=== PATIENT | male | born 1975 | race Caucasian/White ===

== ENCOUNTER 2018-01-08 09:03 | Day surgery (SDC) | payer OTHER ==
[2018-01-08 09:38] VITALS: BMI 33.5
[2018-01-08] MEDS ORDERED: PROPOFOL 20 ML ONE ×2 (10:00)
[2018-01-08] MEDS ORDERED: LIDOCAINE HCL/PF 2% SDV 5ML VIAL ONE (10:01)
[2018-01-08 10:38] VITALS: TEMP 98.2
[2018-01-08 11:04] VITALS: BP 145/79; PULSE 76
--- NOTE | 2018-01-10 12:12 | PATH ---
Surgical Pathology Report Patient Name: ANNA MENSAH [facility]. Rec. #: [id number] /Age/Gender: 1975 (Age: 42) / M Account: [id number] Location: Taken: 01/08/2018 Received: 01/08/2018 Reported: 01/10/2018 Physicians: Denisa Alvarez M.D. Specimen(s) Received A: POLYPP ASCENDING COLON B: BX RECTUM Clinical History GI-rectal bleeding Postoperative diagnosis: Hemorrhoids, small polyp Final Diagnosis A. ASCENDING COLON, POLYP, BIOPSY: TUBULAR ADENOMA. B. RECTUM, BIOPSY: COLONIC MUCOSA WITHOUT SIGNIFICANT PATHOLOGIC FINDINGS. Electronically Signed Denisa Page M.D. Gross Description A. Received in formalin, labeled "polyp ascending colon" is a ashley, irregular portion of soft tissue measuring 0.5 cm. in greatest dimension. The specimen is submitted in toto in one cassette. B. Received in formalin, labeled "biopsy rectum" is a ashley, irregular portion of soft tissue measuring 0.5 cm. in greatest dimension. The specimen is submitted in toto in one cassette. KUSHAL/01/09/2018 jeremiah/01/09/2018
== END 2018-01-08 11:20 | disposition home or self-care (01) ==
LOC: FASU-ENDO 09:03
PROVIDERS: ATTEND Internal Medicine Gastroenterology
PROC: 0DBN8ZX Excision of Sigmoid Colon, Via Natural or Artificial Opening Endoscopic, Diagnostic (ICD-10-PCS; 2018-01-08)
PROC: 0DBM8ZX Excision of Descending Colon, Via Natural or Artificial Opening Endoscopic, Diagnostic (ICD-10-PCS; 2018-01-08)
PROC: 0DBK8ZX Excision of Ascending Colon, Via Natural or Artificial Opening Endoscopic, Diagnostic (ICD-10-PCS; principal; 2018-01-08 10:00)
DX: K92.1 Melena (principal); D12.2 Benign neoplasm of ascending colon; K64.1 Second degree hemorrhoids
CPT/HCPCS: 88305-TC

== ENCOUNTER 2018-10-17 13:02 | Emergency (ER) | payer OTHER ==
[2018-10-17 13:05] VITALS: BP 146/80; PULSE 82; TEMP 99.3; BMI 29.5
--- NOTE | 2018-10-17 13:54 | PDOC ---
Attending Attestation - Resident Resident Name: Lidia Vila - ED Attending Attestation I have performed the following: I have examined & evaluated the patient, The case was reviewed & discussed with the resident, I agree w/resident's findings & plan, Exceptions are as noted - HPI HPI: 10/17/18 18:59 Reviewed Residents HPI - Physicial Exam PE: 10/17/18 18:59 Reviewed Residents PE - Medical Decision Making 10/17/18 18:59 42 years old no history of migraines presents to the ED with worse than usual headache Approximated a.m. this morning His head CT was negative for any acute pathology. Negative for subarachnoid based Hawthorne rules Status post Reglan and Benadryl patient feels much better He will follow up with neurology this week. Findings, the need for follow-up and strict return instructions discussed with patient.
[2018-10-17] MEDS ORDERED: SODIUM CHLORIDE 0.9% 1000 ML INFUS.BAG IV ONE (13:55)
[2018-10-17] MEDS ORDERED: METOCLOPRAMIDE HCL INJECTION 10 MG/2 ML VIAL IVPB ONE (13:55)
[2018-10-17] MEDS ORDERED: METOCLOPRAMIDE HCL INJECTION 10 MG/2 ML VIAL ONE (14:13)
--- NOTE | 2018-10-17 14:54 | PDOC ---
History of Present Illness - General Chief Complaint: Migraine Headache Stated Complaint: MIGRAINE Time Seen by Provider: 10/17/18 13:38 - History of Present Illness Initial Comments: 42yo M smoker presenting with headache that started at 8am. Patient was at work when the headache started. It was gradual in onset and now rated 9/10. He has had headaches in the past, but this one is more severe in quality and caused him to have one episode of NBNB vomiting and made him dizzy such that he almost fell. He has not yet taken anything for his pain as he came to the ED and did not stop at home. Patient denies focal neurologic deficits, weakness, or slurred speech. He has never seen a neurologist. Denies fevers, chills, chest pain, or shortness of breath. Past History - Past Medical History Allergies/Adverse Reactions: Allergies Allergy/AdvReac Type Severity Reaction Status Date / Time No Known Allergies Allergy Verified 01/01/18 14:02 Home Medications: Ambulatory Orders Metoclopramide HCl [Reglan] 10 mg PO PRN PRN #10 tablet 10/17/18 Anemia: No Asthma: No Cancer: No Cardiac Disorders: No CVA: No COPD: No CHF: No Dementia: No Diabetes: No GI Disorders: No Disorders: No HTN: No Hypercholesterolemia: Yes Liver Disease: No Seizures: No Thyroid Disease: No Other medical history: MIGRAINES - Surgical History Abdominal Surgery: No Appendectomy: No Cardiac Surgery: No Cholecystectomy: No Lung Surgery: Yes (RIGHT LUNG 2014 SPONTANEOUS PNENMOTHRAX 2013) Neurologic Surgery: No Orthopedic Surgery: No - Immunization History Immunization Up to Date: Yes - Suicide/Smoking/Psychosocial Hx Smoking History: Never smoked Have you smoked in the past 12 months: No Number of Cigarettes Smoked Daily: 10 If you are a former smoker, when did you quit?: 12/2014 Hx Alcohol Use: No Drug/Substance Use Hx: No Substance Use Type: None Hx Substance Use Treatment: No Review of Systems - Review of Systems Comments:: Constitutional: no fever, no chills HEENT: no throat pain, no dysphagia Cardiovascular: no chest pain, no palpitations Respiratory: no cough, no shortness of breath Gastrointestinal: no abdominal pain, +vomiting, no diarrhea Genitourinary: no dysuria, no frequency Musculoskeletal: no myalgia, no arthralgia Skin: no rash, no itching Neurologic: +headache, +dizziness *Physical Exam - Vital Signs Last Vital Signs Temp Pulse Resp BP Pulse Ox 99.3 F 82 18 146/80 99 10/17/18 13:03 10/17/18 13:03 10/17/18 13:03 10/17/18 13:03 10/17/18 13:03 - Physical Exam Comments: General: Awake, alert, and fully oriented Head: No signs of trauma Eyes: EOMI, sclera anicteric ENT: Moist mucus membranes Neck: Normal ROM, supple Lungs: Lungs clear, Normal breath sounds Cardio: Regular rhythm, S1 and S2 present Abdomen: Soft, nontender. No guarding, no rebound, no masses Extremities: Normal range of motion, Distal pulses present SKIN: Warm, Dry, normal turgor Neurologic: Cranial nerves II through XII intact. Normal reflexes, speech, sensation, strength, coordination, and gait. Moderate Sedation - Procedure Monitoring Vital Signs: Procedure Monitoring Vital Signs Temperature 99.3 F 10/17/18 13:03 Pulse Rate 82 10/17/18 13:03 Respiratory Rate 18 10/17/18 13:03 Blood Pressure 146/80 10/17/18 13:03 O2 Sat by Pulse Oximetry (%) 99 10/17/18 13:03 ED Treatment Course - Medications Given in the ED: ED Medications Discontinued Medications Generic Name Dose Route Start Last Admin Trade Name Reyesq PRN Reason Stop Dose Admin Diphenhydramine HCl 25 mg 10/17/18 13:55 10/17/18 14:24 Benadryl Injection - IVPB 10/17/18 13:56 25 mg ONCE ONE Administration Metoclopramide HCl 10 mg 10/17/18 13:55 10/17/18 14:24 Reglan Injection - IVPB 10/17/18 13:56 10 mg ONCE ONE Administration Sodium Chloride 1,000 ml 10/17/18 13:55 10/17/18 14:24 Normal Saline - IV 10/17/18 13:56 1,000 ml ONCE ONE Administration Medical Decision Making - Medical Decision Making 42yo M smoker presenting with headache that started at 8am. -DDX includes but not limited to SAH, EDH, SDH, migraine headache, tension headache -Since this headache is more severe than patient's previous headaches and still within six hours, decision made to order CT head to rule out bleed -CT head negative for acute pathology -Nonfocal neurologic exam -Reglan, Benadryl, and 1L NS given: patient found asleep in stretcher. Reports improvment in headache, now rated 6/10 -Toradol 30mg given: patient again found asleep in stretcher, headache rated 2/ 10 -Patient discharged with prescription for reglan and referral to neurology to assess his severe headache *DC/Admit/Observation/Transfer Diagnosis at time of Disposition: Headache - Discharge Dispostion Disposition: HOME Condition at time of disposition: Stable - Prescriptions Prescriptions: Metoclopramide HCl [Reglan] 10 mg PO PRN PRN #10 tablet PRN Reason: Headache - Referrals Referrals: Kris Walls MD [Staff Physician] - - Patient Instructions Printed Discharge Instructions: DI for Migraine Additional Instructions: You came into the ED for headache. CT imaging did not show acute pathology. Prescription sent to your pharmacy: 10mg reglan: Take one tablet as needed for headache; may repeat after 4 to 6 hours if needed You can also take [id number] tylenol and motrin for pain. Follow the instructions on the medication bottle. We have referred you to a neurologist to further evaluate your headaches. Call the number provided. RETURN if: you have severe headache, high fever, persistent vomiting, changes in vision, seizures, or any other new or concerning symptoms. If you think you are having an emergency, call for emergency medical services or present to the emergency department right away. - Post Discharge Activity Forms/Work/School Notes: Back to Work
[2018-10-17] MEDS ORDERED: KETOROLAC TROMETHAMINE 30 MG/1 ML VIAL IVPUSH ONE (15:04)
[2018-10-17] MEDS ORDERED: KETOROLAC TROMETHAMINE 30 MG/1 ML VIAL ONE (15:05)
== END 2018-10-17 16:54 | disposition home or self-care (01) ==
LOC: FER 13:02
PROC: 3E0337Z Introduction of Electrolytic and Water Balance Substance into Peripheral Vein, Percutaneous Approach (ICD-10-PCS; principal; 2018-10-17)
PROC: 3E033GC Introduction of Other Therapeutic Substance into Peripheral Vein, Percutaneous Approach (ICD-10-PCS; 2018-10-17)
PROC: 3E0333Z Introduction of Anti-inflammatory into Peripheral Vein, Percutaneous Approach (ICD-10-PCS; 2018-10-17)
DX: R51 Headache (principal); Z87.891 Personal history of nicotine dependence; E78.00 Pure hypercholesterolemia, unspecified
CPT/HCPCS: 70450-TC; 99282-25; J7030

== ENCOUNTER 2020-05-18 05:13 | Day surgery (SDC) | payer OTHER ==
[2020-05-16 11:59] VITALS: BMI 33.2
[2020-05-18] MEDS ORDERED: ACETAMINOPHEN 325 MG TABLET (FP) PO ONE (11:00)
[2020-05-18] MEDS ORDERED: ACETAMINOPHEN 325 MG TABLET (FP) ONE (11:19)
[2020-05-18 13:14] VITALS: TEMP 97
[2020-05-18 14:42] VITALS: BP 112/62; PULSE 66
--- NOTE | 2020-05-20 17:38 | PATH ---
Surgical Pathology Report Patient Name: ANNA MENSAH [facility]. Rec. #: [id number] /Age/Gender: 1975 (Age: 44) / M Account: [id number] Location: ASU-ENDOSCOPY Taken: 05/18/2020 Received: 05/19/2020 Reported: 05/20/2020 Physicians: Denisa Alvarez M.D. Specimen(s) Received A: DESCENDING COLON POLYP B: RECTUM POLYP Clinical History History of polyps Postoperative diagnosis: Colon polyps Final Diagnosis A. DESCENDING COLON POLYP, POLYPECTOMY: TUBULAR ADENOMA. B. RECTUM POLYP, POLYPECTOMY: HYPERPLASTIC POLYP. Electronically Signed Ronald Valentin M.D. Gross Description A. Received in formalin, labeled "biopsy polyp descending colon" is a ashley, irregular portion of soft tissue measuring 0.4 cm. in greatest dimension. The specimen is submitted in toto in one cassette. B. Received in formalin, labeled "biopsy polyp rectum" are 2 ashley, irregular portions of soft tissue averaging 0.2 cm. in greatest dimension. The specimens are submitted in toto in one cassette. 05/19/2020 saudi05/19/2020
== END 2020-05-18 14:10 | disposition home or self-care (01) ==
LOC: JASU-ENDO 05:13
PROVIDERS: ATTEND Internal Medicine Gastroenterology
PROC: 0DBP8ZX Excision of Rectum, Via Natural or Artificial Opening Endoscopic, Diagnostic (ICD-10-PCS; 2020-05-18)
PROC: 0DBM8ZX Excision of Descending Colon, Via Natural or Artificial Opening Endoscopic, Diagnostic (ICD-10-PCS; principal; 2020-05-18 12:44)
DX: Z86.010 Personal history of colon polyps (principal); K64.1 Second degree hemorrhoids
CPT/HCPCS: 82962; 88305-TC

== ENCOUNTER 2021-11-23 19:19 | Emergency (ER) | payer OTHER ==
[2021-11-23 19:30] VITALS: BP 159/85; PULSE 101; TEMP 102.3; BMI 31.7
[2021-11-23] MEDS ORDERED: DALBAVANCIN HCL 1,500 MG in DEXTROSE 5%-WATER - 500 ML IVPB ONE (19:32)
[2021-11-23] MEDS ORDERED: morphine CARPU-JECT 4 MG/1 ML DISP.SYRIN IVPUSH ONE (19:32)
[2021-11-23] MEDS ORDERED: ACETAMINOPHEN 1000 MG/100 ML BAG IVPB ONE (19:33)
[2021-11-23] MEDS ORDERED: KETOROLAC TROMETHAMINE 30 MG/1 ML VIAL IVPUSH ONE (19:33)
[2021-11-23] MEDS ORDERED: morphine SULFATE 4 MG/ML VIAL ONE (19:37)
[2021-11-23] MEDS ORDERED: KETOROLAC TROMETHAMINE 30 MG/1 ML VIAL ONE (19:37)
[2021-11-23] MEDS ORDERED: ACETAMINOPHEN INJECTION 100 ML IVPB ONE (19:37)
[2021-11-23] MEDS ORDERED: DALBAVANCIN HCL 500 MG VIAL (RESTRICTED TO ID ONLY) IVPB ONE (19:37)
[2021-11-23 21:26] LABS: HEMOGLOBIN 15.2 GM/dL (11.7-16.9); MEAN PLT VOLUME 7.8 fl (7.5-11.1)
[2021-11-23 21:28] LABS: BASO % 0.1 % (0-2.0); EOS % 0.3 % (0-4.5); HEMATOCRIT 42.9 % (35.4-49); LYMPH % 6.7 % (8-40); MCH 32.2 pg (25.7-33.7); MCHC 35.4 g/dl (32.0-35.9); MEAN CELL VOLUME 90.9 fl (80-96); MONO % 5.5 % (3.8-10.2); NEUT % 87.4 % (42.8-82.8); PLATELET COUNT 229 10^3/uL (134-434); RBC 4.72 M/mm3 (4.00-5.60); RDW 12.7 % (11.9-15.9); WHITE BLOOD COUNT 15.2 K/mm3 (4.0-10.0)
== END 2021-11-23 23:49 | disposition left against medical advice (07) ==
LOC: FER 19:19
PROC: 3E033GC Introduction of Other Therapeutic Substance into Peripheral Vein, Percutaneous Approach (ICD-10-PCS; principal; 2021-11-23)
DX: L03.211 Cellulitis of face (principal)
CPT/HCPCS: 36415; 70486-TC; 85025; 87040; 99285-25; J0875

== ENCOUNTER 2022-06-03 01:21 | Emergency (ER) | payer OTHER ==
[2022-06-03 01:29] VITALS: RESP 16; BMI 28.0
[2022-06-03 02:08] VITALS: BP 125/80; PULSE 64; TEMP 98.5
[2022-06-03] MEDS ORDERED: IBUPROFEN 600 MG TABLET (FP) PO ONE ×2 (03:24→03:25)
== END 2022-06-03 03:28 | disposition home or self-care (01) ==
LOC: FER 01:21
DX: S20.211A Contusion of right front wall of thorax, initial encounter (principal); Y99.8 Other external cause status
CPT/HCPCS: 71101-TC-RT-FY; 99283-25

== ENCOUNTER 2022-06-27 11:27 | Day surgery (SDC) | payer OTHER ==
[2022-06-26 16:04] VITALS: BMI 30.1
[2022-06-27 13:48] VITALS: RESP 16; TEMP 98
[2022-06-27 13:50] VITALS: BP 118/70; PULSE 72
== END 2022-06-27 13:50 | disposition home or self-care (01) ==
LOC: FASU-ENDO 11:27
PROVIDERS: ATTEND Internal Medicine Gastroenterology
PROC: 0DJD8ZZ Inspection of Lower Intestinal Tract, Via Natural or Artificial Opening Endoscopic (ICD-10-PCS; principal; 2022-06-27 12:55)
DX: Z12.11 Encounter for screening for malignant neoplasm of colon (principal); Z86.010 Personal history of colon polyps; K64.1 Second degree hemorrhoids
CPT/HCPCS: 82962

== ENCOUNTER 2022-09-10 09:31 | Emergency (ER) | payer OTHER ==
[2022-09-10 09:38] VITALS: PULSE 73; RESP 18; TEMP 97; BMI 30.4
[2022-09-10 12:20] VITALS: BP 150/94
[2022-09-10] MEDS ORDERED: IBUPROFEN 600 MG TABLET (FP) PO ONE ×3 (12:41→13:46)
[2022-09-10 14:18] LABS: BASO % 0.8 % (0-2.0); EOS % 2.8 % (0-4.5); HEMATOCRIT 47.2 % (35.4-49); LYMPH % 23.1 % (8-40); MCH 30.9 pg (25.7-33.7); MCHC 33.9 g/dl (32.0-35.9); MEAN CELL VOLUME 91.1 fl (80-96); MONO % 4.9 % (3.8-10.2); NEUT % 68.4 % (42.8-82.8); PLATELET COUNT 264 10^3/uL (134-434); RBC 5.18 M/mm3 (4.00-5.60); RDW 12.5 % (11.9-15.9); WHITE BLOOD COUNT 7.3 K/mm3 (4.0-10.0)
[2022-09-10 14:34] LABS: CALCIUM 9.2 mg/dL (8.5-10.1)
[2022-09-10 14:35] LABS: ALBUMIN 4.4 g/dl (3.4-5.0); BLOOD UREA NITROGEN 14.4 mg/dL (7-18)
[2022-09-10 14:38] LABS: CREATININE 0.7 mg/dL (0.55-1.3)
[2022-09-10 14:39] LABS: BILIRUBIN,TOTAL 0.4 mg/dL (0.2-1)
[2022-09-10 14:40] LABS: TOT PROT 7.7 g/dl (6.4-8.2)
== END 2022-09-10 16:55 | disposition home or self-care (01) ==
LOC: JER 09:31
DX: K08.89 Other specified disorders of teeth and supporting structures (principal); R42 Dizziness and giddiness
CPT/HCPCS: 36415; 71046-TC-FY; 80053; 84484; 85025; 93005; 93010; 99285-25

== ENCOUNTER 2024-10-24 12:25 | Emergency (ER) | payer OTHER ==
[2024-10-24 12:37] VITALS: BP 148/94; PULSE 81; RESP 16; TEMP 99.1; BMI 28.7
[2024-10-24 13:20] LABS: HEMATOCRIT 45.3 % (35.4-49); HEMOGLOBIN 15.6 G/dL (11.7-16.9); MCH 32.1 pg (25.7-33.7); MCHC 34.4 g/dl (32.0-35.9); MEAN CELL VOLUME 93.5 fl (80-96); MEAN PLT VOLUME 7.6 fl (7.5-11.1); PLATELET COUNT 318.2 10^3/uL (134-434); RBC 4.85 10^6/uL (4.00-5.60); RDW 12.7 % (11.9-15.9); WHITE BLOOD COUNT 7.8 10^3/uL (4.0-10.8)
[2024-10-24 13:38] LABS: INR 1.07 (0.83-1.09); PROTHROMBIN TIME (PATIENT) 12.2 SEC (9.7-13.0)
[2024-10-24 13:41] LABS: ACTIVATED PTT 27.7 SECONDS (25.2-36.5)
[2024-10-24 13:53] LABS: ALBUMIN 4.6 g/dl (3.4-5.0); BILIRUBIN,TOTAL 0.7 mg/dl (0.2-1); CALCIUM 9.6 mg/dl (8.5-10.1); CREATININE 0.9 mg/dl (0.6-1.3); MAGNESIUM 2.1 mg/dL (1.8-2.4); POTASSIUM 3.5 mmol/L (3.5-5.1); TOT PROT 7.3 g/dl (6.4-8.2)
[2024-10-24] MEDS ORDERED: AMOX TR/POT CLAV 875MG/125MG TABLETS (FP) ONE (14:21)
[2024-10-24] MEDS ORDERED: ALBUTEROL SO4 0.083% IH SOL 2.5 MG/3 ML VIAL.NEB. NEB ONE (14:21)
[2024-10-24] MEDS ORDERED: guaiFENesin/D-METHORPHAN HB 10 ML UNIT-DOSE CUPS ONE (14:21)
[2024-10-24] MEDS: ALBUTEROL SO4 0.083% IH SOL 2.5 MG/3 ML VIAL.NEB. NEB ONE (14:24)
[2024-10-24] MEDS: guaiFENesin 200 MG/10 ML 10 ML UNIT-DOSE CUPS PO ONE (14:30)
[2024-10-24] MEDS: AMOX TR/POT CLAV 875MG/125MG TABLETS (FP) PO ONE (15:02)
[2024-10-24 15:45] LABS: HIV INTERPRETATION NEGATIVE (NEGATIVE)
== END 2024-10-24 15:10 | disposition home or self-care (01) ==
LOC: FER 12:25
PROC: 3E0F7GC Introduction of Other Therapeutic Substance into Respiratory Tract, Via Natural or Artificial Opening (ICD-10-PCS; principal; 2024-10-24)
DX: J40 Bronchitis, not specified as acute or chronic (principal); R05.9 Cough, unspecified; R09.81 Nasal congestion; Z20.822 Contact with and (suspected) exposure to COVID-19
CPT/HCPCS: 0241U-QW; 36415; 71046-TC-FY; 80053; 83735; 85027; 85379; 85610; 85730; 86803; 87389; 93005; 99285-25